=== PATIENT | male | born 1970 | race Asian ===

== ENCOUNTER 2020-07-19 10:36 | Day surgery (SDC) | payer MEDICAID ==
[~2020-07-19] VITALS: Ht 167.6 cm; Wt 63.2 kg
[~2020-07-19 10:36] MED LIST: LACT10SO28 PO
[2020-07-19] MEDS ORDERED: LIDOCAINE-MPF 1%, 2ML INFIL ONE (11:00)
[2020-07-19] MEDS ORDERED: LACTATED RINGERS 1,000 ML IV SCH (11:00)
[2020-07-19] MEDS ORDERED: CHLORHEXIDINE 15 ML UDC MM ONE (11:00)
[2020-07-19] MEDS ORDERED: PROPOFOL 10 MG/ML, 20ML ONE (11:42)
[2020-07-19] MEDS ORDERED: HYDROmorphone 1 MG/ML, 1ML INJ ONE ×2 (12:12→12:43)
[2020-07-19] MEDS ORDERED: FENTANYL PF 100 MCG/2ML ONE ×2 (12:12→12:43)
[2020-07-19] MEDS: FENTANYL PF 100 MCG/2ML IV PRN ×2 (12:13→12:19)
[2020-07-19] MEDS ORDERED: OXYcodone 5 MG/5 ML ORAL.SOL UDC ONE (12:25)
[2020-07-19] MEDS ORDERED: MEPERIDINE/PF 25MG/0.5ML IVPush PRN (12:30)
[2020-07-19] MEDS ORDERED: EPHEDRINE 50 MG/ML, 1ML IVPush PRN (12:30)
[2020-07-19] MEDS ORDERED: PROMETHAZINE 25 MG/ML, 1ML IVPush PRN (12:30)
[2020-07-19] MEDS ORDERED: DIAZEPAM 5 MG/ML, 2ML IVPush PRN (12:30)
[2020-07-19] MEDS ORDERED: LABETALOL 5MG/ML, 20ML IV PRN (12:30)
[2020-07-19] MEDS ORDERED: OXYcodone 5 MG/5 ML ORAL.SOL UDC PO PRN (12:30)
[2020-07-19] MEDS ORDERED: morphine SULFATE 10 MG/ML, 1ML IVPush PRN (12:30)
[2020-07-19] MEDS ORDERED: EPHEDRINE 50 MG/ML, 1ML IM PRN (12:30)
[2020-07-19] MEDS ORDERED: DIPHENHYDRAMINE 50 MG/ML, 1ML IVPush PRN (12:30)
[2020-07-19] MEDS ORDERED: ONDANSETRON 2MG/ML, 2ML IVPush PRN (12:30)
[2020-07-19] MEDS: HYDROmorphone 1 MG/ML, 1ML INJ IVPush PRN ×3 (12:31→12:44)
== END 2020-07-19 13:48 | disposition home or self-care (01) ==
LOC: OUT 10:36
PROVIDERS: ATTEND Internal Medicine Gastroenterology
DX: I85.00 Esophageal varices without bleeding (principal); K70.30 Alcoholic cirrhosis of liver without ascites; K76.6 Portal hypertension; K31.89 Other diseases of stomach and duodenum; I10 Essential (primary) hypertension; F17.210 Nicotine dependence, cigarettes, uncomplicated; F10.988 Alcohol use, unspecified with other alcohol-induced disorder; Z20.828 Contact with and (suspected) exposure to other viral communicable diseases; Z79.899 Other long term (current) drug therapy; Z98.890 Other specified postprocedural states
CPT/HCPCS: 43244; 87635; J1170; J2704; J3010; J7120